=== PATIENT | male | born 1950 | race Caucasian/White ===

== ENCOUNTER → 2021-03-31 | Outpatient (CLI) | payer OTHER ==
[~2021-03-31] MED LIST: ACIPHEX20 MG PO; ALBUTEROL2.5 MG/3 M INH; ASPIR 8181 MG PO; COREG 12.5MG12.5 MG PO; ELIQUIS 5 MG TAB5 MG PO; ENTRESTO 24 MG1 EACH PO; FISH OIL 1,0001 EACH PO; INSPRA50 MG PO; LASIX 40 MG TAB40 MG PO; LIPITOR TAB 2020 MG PO; LYRICA150 MG PO; MEDROL4 MG PO; OMNICEF 300 MG300 MG PO; PREDNISONE5 MG PO; PROBIOTIC1 EAC3 PO; STOOL SOFTENER240 MG PO; SYNTHROID 150150 MCG PO; THERAGRAN M TAB1 EA PO; ULTRAM50 MG PO; VIBRAMYCIN100 MG PO; VITAMIN D250000 UNIT PO; ZAROXOLYN/DIUL2.5 MG PO
[2021-03-31 10:51] LABS: BORDETELLA PARAPERTUSSIS Not Detected (Not Detectd); BORDETELLA PERTUSSIS Not Detected (Not Detectd); CHLAMYDIA PNEUMONIAE Not Detected (Not Detectd); CORONAVIRUS HKU1 Not Detected (Not Detectd); CORONAVIRUS NL63 Not Detected (Not Detectd); CORONAVIRUS OC43 Not Detected (Not Detectd); CORONOAVIRUS 229E Not Detected (Not Detectd); HUMAN METAPNEUMOVIRUS Not Detected (Not Detectd); HUMAN RHINOVIRUS/ENTEROVIRUS Not Detected (Not Detectd); INFLUENZA A Not Detected (Not Detectd); INFLUENZA B Not Detected (Not Detectd); MYCOPLASMA PNEUMONIAE Not Detected (Not Detectd); PARAINFLUENZA VIRUS 1 Not Detected (Not Detectd); PARAINFLUENZA VIRUS 2 Not Detected (Not Detectd); PARAINFLUENZA VIRUS 3 Not Detected (Not Detectd); PARAINFLUENZA VIRUS 4 Not Detected (Not Detectd); RESPIRATORY SYNCYTIAL VIRUS Not Detected (Not Detectd)
[2021-03-31 11:51] LABS: SARS-CoV-2 NOT DETECTED (Not Detectd)
== END ==
LOC: LAB 10:29
PROVIDERS: Physician Assistant
DX: R05.9 Cough, unspecified (principal); R50.9 Fever, unspecified; Z20.822 Contact with and (suspected) exposure to COVID-19
CPT/HCPCS: 87633